=== PATIENT | female | born 1945 | race Caucasian/White ===

== ENCOUNTER → 2017-03-30 | Outpatient (CLI) | payer MEDICARE ==
--- NOTE | 2017-04-04 10:49 | RSPPFT ---
DATE OF PROCEDURE: 03/30/17 COMMENTS: Spirometry with FVC of 2.3, FEV1 of 1.7, FEV1/FVC ratio at 76%. A non-significant response to acutely inhaled bronchodilator noted. Slow vital capacity is 89% of predicted. TLC is 96%. Diffusion capacity at 51% of predicted and normal when corrected for alveolar volume. IMPRESSION: 1. No evidence of airways obstruction or restriction. 2. Reduced diffusion capacity and normal when related to alveolar volume.
== END ==
LOC: HRSP 10:14
PROVIDERS: ATTEND Internal Medicine Cardiovascular Disease
DX: R06.02 Shortness of breath (principal)
CPT/HCPCS: 94060; 94726; 94729